=== PATIENT | female | born 1965 | race Two or more races ===

== ENCOUNTER → 2021-02-24 | Day surgery (SDC) | payer OTHER | END | disposition home or self-care (01) | LOC: ADM 02-21 13:15 → AMB-ENDOS 08:25 | PROVIDERS: ATTEND Surgery | DX: D12.8 Benign neoplasm of rectum (principal); Z20.822 Contact with and (suspected) exposure to COVID-19; Z12.11 Encounter for screening for malignant neoplasm of colon ==

== ENCOUNTER 2021-03-28 14:11 | Outpatient (CLI) | payer OTHER | END 2021-04-01 14:15 | disposition home or self-care (01) | LOC: RAD 14:11 | PROVIDERS: ATTEND Surgery | DX: R15.9 Full incontinence of feces (principal); Z12.11 Encounter for screening for malignant neoplasm of colon ==

== ENCOUNTER → 2021-04-18 | Outpatient (CLI) | payer OTHER | END | disposition home or self-care (01) | LOC: TOM 09:12 | PROVIDERS: ATTEND Surgery | DX: K52.89 Other specified noninfective gastroenteritis and colitis (principal); R15.9 Full incontinence of feces; Z12.11 Encounter for screening for malignant neoplasm of colon ==

== ENCOUNTER 2021-06-03 07:35 | Outpatient (CLI) | payer OTHER | END 2021-06-03 07:41 | disposition home or self-care (01) | LOC: RAD 07:35 | PROVIDERS: ATTEND Surgery | DX: I10 Essential (primary) hypertension (principal); K56.699 Other intestinal obstruction unspecified as to partial versus complete obstruction; K59.02 Outlet dysfunction constipation ==

== ENCOUNTER 2021-06-09 09:15 | Inpatient (IN) | payer OTHER ==
[~2021-06-09] VITALS: Ht 152.4 cm; Wt 52.2 kg
[2021-06-09] MEDS ORDERED: ZESTRIL20 MG PO (12:49)
[2021-06-09] MEDS ORDERED: ZOCOR20 MG PO (12:50)
[2021-06-25] MEDS ORDERED: PERCOCET 5-3251 EACH PO (11:39)
== END 2021-06-25 12:15 | disposition home or self-care (01) | DRG 982 ==
LOC: SURH 06-14 09:15 → O/R 06-22 06:10 → SURH 06-22 06:10
PROVIDERS: ADMIT Surgery; ATTEND Surgery
PROC: 0DJD8ZZ Inspection of Lower Intestinal Tract, Via Natural or Artificial Opening Endoscopic (ICD-10-PCS; 2021-06-22)
PROC: 0DTN4ZZ Resection of Sigmoid Colon, Percutaneous Endoscopic Approach (ICD-10-PCS; principal; 2021-06-22 06:30)
DX: N73.6 Female pelvic peritoneal adhesions (postinfective) (principal); K91.61 Intraoperative hemorrhage and hematoma of a digestive system organ or structure complicating a digestive system procedure; N99.4 Postprocedural pelvic peritoneal adhesions; K59.02 Outlet dysfunction constipation; I11.9 Hypertensive heart disease without heart failure

== ENCOUNTER 2021-06-10 08:00 | Outpatient (CLI) | payer OTHER ==
[~2021-06-10 08:00] MED LIST: ZESTRIL20 MG PO; ZOCOR20 MG PO
== END 2021-06-10 08:30 | disposition home or self-care (01) ==
LOC: PPH VACUNA 08:00
PROVIDERS: ATTEND Emergency Medicine Pediatric Emergency Medicine
DX: Z23 Encounter for immunization (principal)

== ENCOUNTER 2021-06-20 10:10 | Outpatient (CLI) | payer OTHER | END 2021-06-20 10:11 | disposition home or self-care (01) | LOC: LAB 10:10 | PROVIDERS: ATTEND Surgery | DX: Z03.818 Encounter for observation for suspected exposure to other biological agents ruled out (principal) ==

== ENCOUNTER 2021-11-09 08:27 | Outpatient (CLI) | payer OTHER ==
[~2021-11-09 08:27] MED LIST changes: +PERCOCET 5-3251 EACH PO
== END 2021-11-09 08:51 | disposition home or self-care (01) ==
LOC: MAMO-SONO 08:27
PROVIDERS: ATTEND Surgery
DX: K56.5 Intestinal adhesions [bands] with obstruction (postinfection) (principal); K59.02 Outlet dysfunction constipation; M77.30 Calcaneal spur, unspecified foot; Z12.31 Encounter for screening mammogram for malignant neoplasm of breast

== ENCOUNTER 2024-10-30 06:04 | Emergency (ER) | payer OTHER ==
[~2024-10-30] VITALS: Ht 157.5 cm; Wt 54.4 kg
[~2024-10-30 06:04] MED LIST changes: +MEDI-MECLIZINE25 MG PO
[2024-10-30] MEDS ORDERED: ROSUVASTATIN CA10 MG PO (06:21)
[2024-10-30] MEDS ORDERED: FAMOTIDINE/PF 20 MG/2 ML VIAL IV PUSH STA (06:47)
[2024-10-30] MEDS ORDERED: LACTOBACILLUS ACIDOPHILUS 1 CAP CAP PO STA (06:47)
[2024-10-30] MEDS ORDERED: HYOSCYAMINE SULFATE 0.125 MG TAB.SUBL SL STA (06:48)
[2024-10-30] MEDS ORDERED: 0.9 % SODIUM CHLORIDE 1,000 ML IV ONE (07:00)
[2024-10-30] MEDS ORDERED: FAMOTIDINE/PF 20 MG/2 ML VIAL ONE (07:12)
[2024-10-30] MEDS ORDERED: LACTOBACILLUS ACIDOPHILUS 1 CAP CAP PO ONE (07:12)
[2024-10-30] MEDS ORDERED: HYOSCYAMINE SULFATE 0.125 MG TAB.SUBL ONE (07:12)
[2024-10-30 07:39] LABS: BASO % 0.5 % (0.1-1.2); EOS # 0.04 (0.04-0.54); EOS % 0.7 % (0.7-7.0); HEMATOCRIT 42.3 % (34.1-44.9); HEMOGLOBIN 14.8 g/dL (11.2-15.7); LYMPH # 1.32 (1.18-3.74); LYMPH % 22.8 % (19.3-53.1); MEAN CORPUSCULAR HEMOGLOBIN 30.9 pg (25.6-32.2); MONO # 0.67 (0.24-0.82); MONO % 11.6 % (4.7-12.5); NEUT # 3.73 (1.56-6.13); NEUT % 64.2 % (34.0-71.1); PLATELET COUNT 291 K/uL (163-369); RED BLOOD COUNT 4.79 M/uL (3.93-5.22); RED CELL DISTRIBUTION WIDTH 11.6 % (11.6-14.4)
[2024-10-30 08:00] LABS: BILIRUBIN TOTAL 0.58 mg/dL (0.3-1.2); CALCIUM 8.9 mg/dL (8.5-10.1); CREATININE SERUM 0.57 mg/dL (0.55-1.02); GFR 108.56; POTASSIUM 3.79 mEq/L (3.5-5.1)
[2024-10-30 08:29] LABS: PH,URINE 5.5 (5.0-8.0); URINE APPEARANCE Clear; URINE BILIRRUBIN Negative (NEGATIVE); URINE BLOOD Negative; URINE COLOR Yellow; URINE GLUCOSE Negative (NEGATIVE); URINE KETONE Negative (NEGATIVE); URINE LEUKOCYTE Negative; URINE NITRATE Negative; URINE PROTEIN Negative (NEGATIVE); URINE UROBILINOGEN 0.2 E.U./dl
[2024-10-30 08:34] LABS: URINE BACTERIA 6.1 uL (0.0-1933)
[2024-10-30 08:40] LABS: URINE CAST 0.29 uL (0.0-1.40); URINE EPITHELIAL CELLS 0.1 uL (0.0-38.8); URINE RBC 0.8 uL (0.0-20.8); URINE WBC 1.4 uL (0.0-23.2)
== END 2024-10-30 09:27 | disposition home or self-care (01) ==
LOC: ER 06:12
PROVIDERS: General Practice
DX: K52.89 Other specified noninfective gastroenteritis and colitis (principal); L97.119 Non-pressure chronic ulcer of right thigh with unspecified severity; K52.9 Noninfective gastroenteritis and colitis, unspecified; I10 Essential (primary) hypertension; Z91.040 Latex allergy status

== ENCOUNTER → 2024-12-08 | Emergency (ER) | payer OTHER ==
[~2024-12-08] VITALS: Ht 157.5 cm; Wt 54.4 kg
[~2024-12-08] MED LIST changes: +HYOSCYAMINE SULFATE 0.125 MG TAB.SUBL ONE; +HYOSCYAMINE SULFATE 0.125 MG TAB.SUBL SL ONE; +ROSUVASTATIN CA10 MG PO; +SODIUM BICARBONATE 50MEQ/50ML VIAL IV ONE
[2024-12-08 22:00] LABS: BASO % 0.4 % (0.1-1.2); EOS # 0.10 (0.04-0.54); EOS % 1.3 % (0.7-7.0); LYMPH # 3.28 (1.18-3.74); LYMPH % 41.4 % (19.3-53.1); MEAN PLATELET VOLUME 9.80 fl (9.4-12.4); MONO # 0.70 (0.24-0.82); MONO % 8.8 % (4.7-12.5); NEUT # 3.81 (1.56-6.13); NEUT % 48.0 % (34.0-71.1); RED CELL DISTRIBUTION WIDTH 11.5 % (11.6-14.4)
[2024-12-08 22:09] LABS: URINE APPEARANCE Clear; URINE BILIRRUBIN Negative (NEGATIVE); URINE BLOOD Negative; URINE COLOR Yellow; URINE GLUCOSE Negative (NEGATIVE); URINE KETONE Trace (NEGATIVE); URINE LEUKOCYTE Trace; URINE NITRATE Negative; URINE PROTEIN Negative (NEGATIVE); URINE UROBILINOGEN 1.0 E.U./dl
[2024-12-08 22:11] LABS: URINE BACTERIA 19.1 uL (0.0-1933); URINE EPITHELIAL CELLS 3.9 uL (0.0-38.8); URINE RBC 5.8 uL (0.0-20.8); URINE WBC 7.5 uL (0.0-23.2)
[2024-12-08 22:16] LABS: URINE CAST 0.29 uL (0.0-1.40)
[2024-12-08 22:29] LABS: ALT/SGPT 24.0 U/L (12-78); AST/SGOT 22.0 U/L (15-37); BILIRUBIN TOTAL 0.84 mg/dL (0.3-1.2); BUN CREA RATIO 23.0 (7.0-25.0); CREATININE SERUM 0.74 mg/dL (0.55-1.02); GFR 80.33; GLOBULINA 3.5 G/DL (2.4-3.5); GLUCOSE FASTING 110.0 mg/dL (65-100); OSMOLALITY SERUM 283.0 MOSM/KG (275-295)
[2024-12-08 22:34] LABS: BILIRUBIN,CONJUGATED 0.11 mg/dL (0.0-0.2)
== END | disposition home or self-care (01) ==
LOC: ER 20:33
PROVIDERS: Emergency Medicine
DX: R10.9 Unspecified abdominal pain (principal); I10 Essential (primary) hypertension; Z91.040 Latex allergy status